=== PATIENT | female | born 2000 | race Caucasian/White ===

== ENCOUNTER 2020-08-30 20:18 | Emergency (ER) | payer MEDICAID ==
[~2020-08-30] VITALS: Ht 170.2 cm; Wt 65.9 kg
[~2020-08-30 20:18] MED LIST: HYDROCODON-ACE1 EAC7 PO
[2020-08-30 20:41] VITALS: BP 134/88; Ht 170.2 cm; Wt 65.9 kg
[2020-08-30] MEDS ORDERED: AMOXICILLIN875 MG PO (20:42)
[2020-08-30 21:07] LABS: BASOPHILS 0.2 % (0-2); EOSINOPHILS 0.1 % (0-7); HEMATOCRIT 43.7 % (36.0-48.0); HEMOGLOBIN 14.5 g/dL (12-16); IMMATURE GRANULOCYTES 0.2 % (0-5); LYMPHOCYTES 14.2 % (15-50); MCH 30.4 pg (26.0-34.0); MCHC 33.2 g/dL (31.0-37.0); MCV 91.6 fL (80.0-100.0); MEAN PLATELET VOLUME 10.4 fL (7.4-10.4); MONOCYTES 18.4 % (2-11); NEUTROPHILS 66.9 % (40-80); PLATELET COUNT 304 10x3/uL (130-400); RBC 4.77 10x6/uL (4.00-5.40); RDW 14.1 % (11.5-14.5); WBC 9.1 10x3/uL (4.8-10.8)
[2020-08-30 21:12] LABS: BILIRUBIN NEGATIVE (NEGATIVE); HCG URINE POSITIVE (NEGATIVE); KETONE NEGATIVE (NEGATIVE); NITRITE NEGATIVE (NEGATIVE); UROBILINOGEN NORMAL mg/dL (< 2)
[2020-08-30 21:20] LABS: CALC OSMOLALITY 272 mosm/kg (275-300); CALCIUM 8.4 mg/dL (8.5-10.1); CARBON DIOXIDE 25.8 mmol/L (21.0-32.0); CHLORIDE - SERUM 103 mmol/L (98-107); CREATININE - SERUM 0.6 mg/dL (0.6-1.3); GLUCOSE 80 mg/dL (74-106); POTASSIUM - SERUM 3.4 mmol/L (3.5-5.1); SODIUM 137 mmol/L (136-145); UREA NITROGEN 13 mg/dL (7-18); eGFR NON AFRICAN AMERICAN > 90 mL/min (90-120)
[2020-08-30 21:26] LABS: ALBUMIN 3.6 g/dL (3.4-5.0); ALKALINE PHOSPHATASE 77 U/L (30-120); ALT (SGPT) 29 U/L (10-68); BILIRUBIN - TOTAL 0.36 mg/dL (0.2-1.3); PROTEIN - SERUM 7.3 g/dL (6.4-8.2)
[2020-08-30] MEDS ORDERED: LOMOTIL 2.5-0.1 EAC1 PO (22:06)
[2020-08-30] MEDS ORDERED: VITAMIN B-625 MG PO (22:06)
== END 2020-08-30 22:19 | disposition home or self-care (01) ==
LOC: D.ER 20:18
PROVIDERS: Family Medicine
DX: A08.4 Viral intestinal infection, unspecified (principal)